=== PATIENT | female | born 1990 | race Caucasian/White ===

== ENCOUNTER 2017-08-09 10:24 | Emergency (ER) | payer OTHER ==
[~2017-08-09] VITALS: Ht 160 cm; Wt 65.5 kg
[2017-08-09] MEDS ORDERED: PREN1TAB26 PO (10:32)
[2017-08-09] MEDS ORDERED: ONDANSETRON HCL 4 MG/2 ML VIAL IVP ONE (11:15)
[2017-08-09] MEDS ORDERED: SODIUM CHLORIDE 0.9% 1,000 ML IV ONE (11:15)
[2017-08-09 11:53] LABS: ANION GAP 13 mmol/L (8-16); CALCIUM, TOTAL 9.1 mg/dL (8.8-10.5); CARBON DIOXIDE 24 mmol/L (22-29); CHLORIDE 102 mmol/L (98-107); CREATININE 0.66 mg/dL (0.60-1.30); GLOMERULAR FILTR. RATE CALC > 60 mL/min (>60); GLUCOSE,RANDOM 89 mg/dL (70-110); POTASSIUM 3.5 mmol/L (3.5-5.1); SODIUM SERUM 139 mmol/L (136-145); UREA NITROGEN, BLOOD 12 mg/dL (7-18)
[2017-08-09 13:30] VITALS: BP 112/58
== END 2017-08-09 13:42 | disposition home or self-care (01) ==
LOC: EMS 10:26
DX: O21.0 Mild hyperemesis gravidarum (principal); O26.891 Other specified pregnancy related conditions, first trimester; Z3A.09 9 weeks gestation of pregnancy
CPT/HCPCS: 36415; 80048; 96374; 99284; J2405; J7030

== ENCOUNTER 2017-08-17 16:33 | Emergency (ER) | payer OTHER ==
[~2017-08-17] VITALS: Ht 160 cm; Wt 65.9 kg
[~2017-08-17 16:33] MED LIST: PREN1TAB26 PO
[2017-08-17] MEDS ORDERED: ONDA4 PO (16:48)
[2017-08-17] MEDS ORDERED: DOXY25TA29 PO (16:48)
[2017-08-17] MEDS ORDERED: PYRI50 PO (16:48)
[2017-08-17 19:01] VITALS: BP 132/60
== END 2017-08-17 19:06 | disposition home or self-care (01) ==
LOC: EMS 16:34
DX: O26.891 Other specified pregnancy related conditions, first trimester (principal); K04.7 Periapical abscess without sinus; Z3A.09 9 weeks gestation of pregnancy
CPT/HCPCS: 99283

== ENCOUNTER 2018-02-26 09:48 | Emergency (ER) | payer OTHER ==
[~2018-02-26] VITALS: Ht 160 cm; Wt 70.5 kg
[~2018-02-26 09:48] MED LIST changes: +DOXY25TA29 PO; +ONDA4 PO; +PYRI50 PO
[2018-02-26] MEDS ORDERED: LIDOCAINE 1% 10 ML VIAL INJ ONE (12:30)
[2018-02-26] MEDS ORDERED: BUPIVACAINE HCL/PF 0.5% 10 ML VIAL ID ONE (12:30)
[2018-02-26] MEDS ORDERED: POVIDONE-IODINE 10% 15 ML SOLUTION UD TP ONE (12:30)
[2018-02-26 14:10] VITALS: BP 118/68
== END 2018-02-26 14:12 | disposition home or self-care (01) ==
LOC: EMS 09:49
DX: B35.1 Tinea unguium (principal); L60.0 Ingrowing nail
CPT/HCPCS: 11730; 99283; J3490 ×2